=== PATIENT | female | born 1980 | race Caucasian/White ===

== ENCOUNTER 2018-10-16 17:02 | Outpatient (CLI) | payer MEDICAID | END 2018-10-16 18:38 | disposition home or self-care (01) | LOC: OBT 17:02 → L-D 17:03 → OBT 18:38 | DX: O40.3XX0 Polyhydramnios, third trimester, not applicable or unspecified (principal); O62.9 Abnormality of forces of labor, unspecified; O09.523 Supervision of elderly multigravida, third trimester; Z3A.38 38 weeks gestation of pregnancy | CPT/HCPCS: 76815; 76818 ==

== ENCOUNTER 2018-10-19 09:16 | Inpatient (IN) | payer MEDICAID ==
[2018-10-19] MEDS ORDERED: BUTORPHANOL 1 MG INJ IV (10:00)
[2018-10-19] MEDS ORDERED: OXYTOCIN 30 UNITS/LR 500 ML IV (10:00)
[2018-10-19] MEDS ORDERED: CARBOPROST 250 MCG INJ IM (10:00)
[2018-10-19] MEDS ORDERED: IBUPROFEN 600 MG TAB PO (10:00)
[2018-10-19] MEDS ORDERED: LACTATED RINGER'S 1,000 ML IV (10:14)
[2018-10-19 10:29] LABS: ADD MAN DIFF? NO
[2018-10-19 10:33] LABS: BASOPHILS % 0.2 % (0.0-2.0); EOSINOPHILS # 0.9 10^3/ul (0.0-0.5); EOSINOPHILS % 11.2 % (0.0-7.0); HEMATOCRIT 37.5 % (37.0-47.0); HEMOGLOBIN 12.6 g/dl (12.0-16.0); LYMPHOCYTES % 23.8 % (15.0-51.0); MEAN CORPUSCULAR HEMOGLOBIN 31.1 pg (29.0-33.0); MEAN CORPUSCULAR HGB CONC 33.6 g/dl (32.0-37.0); MEAN CORPUSCULAR VOLUME 92.6 fl (82.0-101.0); MEAN PLATELET VOLUME 10.6 fl (7.4-10.4); MONOCYTE # 0.6 10^3/ul (0.3-0.9); MONOCYTES % 6.7 % (0.0-11.0); NEUTROPHIL # 4.8 10^3/ul (1.6-7.5); NEUTROPHILS % 57.4 % (39.0-77.0); PLATELET COUNT 200 10^3/UL (140-415); RED BLOOD COUNT 4.05 10^6/ul (4.20-5.40); RED CELL DISTRIBUTION WIDTH 13.2 % (11.5-14.5)
[2018-10-19 10:33] LABS: WHITE BLOOD COUNT 8.3 10^3/ul (4.8-10.8)
[2018-10-19] MEDS: LACTATED RINGER'S 1,000 ML IV ×5 (10:46→21:18)
[2018-10-19 11:00] LABS: PROTIME 12.2 Sec (11.9-14.9)
[2018-10-19 11:01] LABS: PARTIAL THROMBOPLASTIN TIME 27.4 Sec (23.0-35.0)
[2018-10-19] MEDS: OXYTOCIN 30 UNITS/LR 500 ML IV (11:35)
[2018-10-19 12:18] LABS: HEPATITIS B SURFACE ANTIGEN NEGATIVE (NEGATIVE)
[2018-10-19] MEDS: BUTORPHANOL 2 MG INJ IV (17:21)
[2018-10-19] MEDS ORDERED: FENTAnyl 2MCG/ML-ROPIV 0.2% 100 ML (20:51)
[2018-10-19 21:04] LABS: RAPID PLASMA REAGIN NONREACTIVE (NR)
[2018-10-19] MEDS ORDERED: MINERAL OIL LIGHT 10 ML VIAL (22:52)
[2018-10-19] MEDS ORDERED: DIPHENHYDRAMINE 50 MG INJ IV (23:30)
[2018-10-19] MEDS ORDERED: NALOXONE (0.4 MG/ML) INJ IV (23:30)
[2018-10-19] MEDS ORDERED: FENTAnyl 2MCG/ML-ROPIV 0.2% 100 ML BAG EPI (23:30)
[2018-10-20] MEDS: LACTATED RINGER'S 1,000 ML IV (00:23)
[2018-10-20] MEDS: METHYLERGONOVINE 0.2 MG INJ IM (02:26)
[2018-10-20] MEDS: LIDOCAINE 1% (MPF) 30 ML INJ INJ (02:27)
[2018-10-20] MEDS: OXYTOCIN 30 UNITS/LR 500 ML IV ×4 (02:46→09:29)
[2018-10-20] MEDS: MISOPROSTOL 200 MCG TAB PR (02:53)
[2018-10-20] MEDS ORDERED: CARBOPROST 250 MCG INJ IM (03:00)
[2018-10-20] MEDS ORDERED: ACETAMINOPHEN 325 MG TAB PO (03:00)
[2018-10-20] MEDS ORDERED: BENZOCAINE 20% 56 ML SPRAY TOP (03:00)
[2018-10-20] MEDS ORDERED: SENNA/DOCUSATE NA (8.6MG/50MG) TAB PO (03:00)
[2018-10-20] MEDS ORDERED: OXYCODONE/ASPIRIN (4.88/325) TAB PO ×2 (03:00)
[2018-10-20] MEDS ORDERED: NACL 0.9% 3 ML SYG IV (03:00)
[2018-10-20] MEDS ORDERED: METHYLERGONOVINE 0.2 MG INJ IM (03:00)
[2018-10-20] MEDS ORDERED: MISOPROSTOL 200 MCG TAB PR (03:00)
[2018-10-20] MEDS ORDERED: OXYTOCIN 30 UNITS/LR 500 ML IV (03:00)
[2018-10-20] MEDS ORDERED: DIPHENHYDRAMINE 25 MG CAP PO (03:00)
[2018-10-20] MEDS ORDERED: ONDANSETRON 4 MG INJ IV (03:00)
[2018-10-20] MEDS: ONDANSETRON 4 MG INJ IV (03:13)
[2018-10-20] MEDS: IBUPROFEN 600 MG TAB PO ×3 (06:00→17:31)
[2018-10-20] MEDS: WITCH HAZEL/GLYCERIN PAD PR (09:30)
[2018-10-20] MEDS: LANOLIN HPA 1 PKT TOP (09:30)
[2018-10-20] MEDS: SENNA/DOCUSATE NA (8.6MG/50MG) TAB PO ×2 (09:30→21:12)
[2018-10-21] MEDS: IBUPROFEN 600 MG TAB PO ×4 (05:54→18:04)
[2018-10-21] MEDS: SENNA/DOCUSATE NA (8.6MG/50MG) TAB PO ×2 (09:20→21:00)
[2018-10-21 09:38] LABS: ADD MAN DIFF? NO
[2018-10-21 09:40] LABS: WHITE BLOOD COUNT 15.6 10^3/ul (4.8-10.8)
[2018-10-21 09:40] LABS: BASOPHILS % 0.3 % (0.0-2.0); EOSINOPHILS % 6.4 % (0.0-7.0); HEMATOCRIT 30.2 % (37.0-47.0); HEMOGLOBIN 10.1 g/dl (12.0-16.0); MEAN CORPUSCULAR HEMOGLOBIN 31.6 pg (29.0-33.0); MEAN CORPUSCULAR HGB CONC 33.4 g/dl (32.0-37.0); MEAN CORPUSCULAR VOLUME 94.4 fl (82.0-101.0); MEAN PLATELET VOLUME 10.7 fl (7.4-10.4); MONOCYTE # 0.9 10^3/ul (0.3-0.9); MONOCYTES % 5.5 % (0.0-11.0); NEUTROPHIL # 10.6 10^3/ul (1.6-7.5); NEUTROPHILS % 68.2 % (39.0-77.0); PLATELET COUNT 202 10^3/UL (140-415); RED CELL DISTRIBUTION WIDTH 13.2 % (11.5-14.5)
[2018-10-22] MEDS: IBUPROFEN 600 MG TAB PO ×3 (00:33→10:25)
[2018-10-22 09:13] LABS: WHITE BLOOD COUNT 9.9 10^3/ul (4.8-10.8)
[2018-10-22] MEDS: SENNA/DOCUSATE NA (8.6MG/50MG) TAB PO (10:23)
== END 2018-10-22 13:10 | disposition home or self-care (01) | DRG 807 ==
LOC: L-D 09:16 → PP1 10-20 05:59 → L-D 09:43
PROVIDERS: Obstetrics & Gynecology
PROC: 10E0XZZ Delivery of Products of Conception, External Approach (ICD-10-PCS; principal; 2018-10-19 09:30)
PROC: 0W8NXZZ Division of Female Perineum, External Approach (ICD-10-PCS; 2018-10-19 09:30)
DX: O48.0 Post-term pregnancy (principal); Z37.0 Single live birth; Z3A.40 40 weeks gestation of pregnancy
CPT/HCPCS: 62319; 76816; 76818; 85025; 85048; 85610; 85730; 86592; 86850; 86900; 86901; 87340